=== PATIENT | male | born 1960 | race Caucasian/White ===

== ENCOUNTER 2016-05-18 03:22 | Emergency (ER) | payer OTHER ==
[~2016-05-18] VITALS: Ht 188 cm; Wt 108.9 kg
--- NOTE | 2016-05-18 04:48 | ED UPPER/LOWER EXTREMITY COMPL ---
See Addendum History of Present Illness General Chief Complaint: Chest Pain Stated Complaint: CP Source: patient Exam Limitations: no limitations Vital Signs & Intake/Output Vital Signs & Intake/Output Vital Signs Date Time Temp Pulse Resp B/P Pulse O2 O2 Flow FiO2 Ox Delivery Rate 05/18 0544 97.6 79 16 145/98 95 Room Air 05/18 0332 97.5 67 18 154/108 97 Room Air Allergies Coded Allergies: No Known Allergies (05/18/16) Reconcile Medications No Known Home Medications Triage Note: ARRIVED ED STATES WOKE UP FROM SLEEP WITH PAIN IN LT ARM FROM WRIST TO SHOULDER, WORSE AT ELBOW, NOW FEELS A LITTLE NUMB, PT DENIES CHEST PAIN,SOB Triage Nurses Notes Reviewed? yes HPI: Patient presents for evaluation of a left arm pain that awoke him from sleep prior to arrival. Patient states the pain has been constant and occasionally radiates to the left side of the neck and into the hand. He states the pain seems to be most intense in the area of the left elbow. It is described as a numbness that gets better when he is distracted. He denies any associated chest pain or dyspnea (he states he has noticed a burning pain in his chest only when he drinks water). He tried 3 aspirin about 45 minutes ago without improvement. He denies any known injury. Past History Travel History Traveled to [place] past 21 day No Medical History Any Pertinent Medical History? see below for history Neurological: NONE EENT: NONE Cardiovascular: NONE Respiratory: NONE Gastrointestinal: NONE Hepatic: NONE Renal: NONE Musculoskeletal: NONE Psychiatric: NONE Endocrine: NONE Blood Disorders: NONE Cancer(s): NONE Surgical History Surgical History: non-contributory Psychosocial History What is your primary language Finnish Tobacco Use: Refused to answer Family History Hx Contributory? No Review of Systems Review of Systems Constitutional: Reports: no symptoms. EENTM: Reports: no symptoms. Respiratory: Reports: no symptoms. Cardiovascular: Reports: no symptoms. Gastrointestinal/Abdominal: Reports: no symptoms. Genitourinary: Reports: no symptoms. Musculoskeletal: Reports: see HPI. Skin: Reports: no symptoms. Neurological/Psychological: Reports: no symptoms. Hematologic/Endocrine: Reports: no symptoms. Immunological: Reports: no symptoms. All Other Systems: Reviewed and Negative Physical Exam Physical Exam General Appearance: see below Comments: Gen.: Well-nourished, well-developed, no acute respiratory distress. Head: Normocephalic, atraumatic. Eyes: Normal inspection bilaterally Ears: Normal inspection bilaterally Nose: Normal inspection, nasal cannula in place Throat/mouth : Moist mucosa Neck: Supple, full range of motion, no goiter Heart: Regular rate and rhythm, no murmurs rubs or gallops Lungs: Clear to auscultation bilaterally with good air entry Back: Normal range of motion, nontender Extremities: Left upper extremity: Normal sensation to light touch throughout the extremity, deep tendon reflexes normal, hand strength normal. Testing of radial median and ulnar nerves normal. No tenderness with percussion over the carpal tunnel. Phalen and Tinel tests normal. Neurologic: Cranial nerves grossly intact, speech is clear Skin: warm and dry Psychiatric: Calm, cooperative, no apparent delusions or hallucinations Progress Differential Diagnosis: NERVE IMPINGEMENT, CERVICAL DISC DISEASE Plan of Care: Orders Procedure Date/time Status EKG 05/18 322 Active Diagnostic Imaging: Discussed w/RAD: Radiology Read. Radiology Impression: PATIENT: TED ANDERSON PRESENT AGE: 55 PATIENT ACCOUNT NO: [id number] : 62 LOCATION: [facility] ORDERING PHYSICIAN: HANS CARLSON MD SERVICE DATE: 05/18/16 EXAM TYPE: RAD - XRY-HUMERUS, LEFT EXAMINATION: XR HUMERUS, LEFT CLINICAL INFORMATION: Left upper extremity numbness COMPARISON: None TECHNIQUE: AP and lateral views of the left humerus. FINDINGS: No fracture of the humerus. No focal bone lesion. No periosteal reaction. Left shoulder normal. No soft tissue abnormality. IMPRESSION: Normal left humerus. DICTATED BY: NEVAEH OSPINA MD DATE/TIME DICTATED :05/18/16519 CHUTE OPERATOR:WING DATE/TIME TRANSCRIBED:05/18/16519 CONFIDENTIAL, DO NOT COPY WITHOUT APPROPRIATE AUTHORIZATION. < Electronically signed in Other Vendor System> SIGNED BY: NEVAEH OSPINA MD 24, PATIENT: TED ANDERSON PRESENT AGE: 55 PATIENT ACCOUNT NO: [id number] : 62 LOCATION: [facility] ORDERING PHYSICIAN: HANS CARLSON MD SERVICE DATE: 05/18/16 EXAM TYPE: RAD - XRY-CERV SPINE 4 OR 5 VIEWS EXAMINATION: XR CERVICAL SPINE CLINICAL INFORMATION: Left upper extremity numbness. COMPARISON: None TECHNIQUE: 3 views. FINDINGS: Cervical vertebrae have normal height. No fracture or bone destruction. Degenerative arthrosis at the facet joints, right greater than left, at the mid cervical spine. Degenerative spur posterior vertebral endplate C3-C4. Cannot assess neural foramina on these 3 views of cervical spine. Bilateral oblique views would be helpful. IMPRESSION: Degenerative disc disease. Further assessment of cervical spine with MRI could be helpful. DICTATED BY: NEVAEH OSPINA MD DATE/TIME DICTATED:05/18/16516 CHUTE OPERATOR:WING DATE/TIME TRANSCRIBED:05/18/16516 CONFIDENTIAL, DO NOT COPY WITHOUT APPROPRIATE AUTHORIZATION. <Electronically signed in Other Vendor System> SIGNED BY: NEVAEH OSPINA MD 05/18/16 0523 Comments: 05/18/2016 6:11:01 AM I have updated on his test results. He remains asymptomatic. Departure Departure Disposition: HOME OR SELF CARE Condition: Stable Clinical Impression Primary Impression: Arm paresthesia, left Secondary Impressions: Cervical disc disease Referrals: [facility] PATIENT HAS NO PRIMARY CARE DR (PCP/Family) Additional Instructions: Ibuprofen 600 mg every 6 hours as needed for your left arm discomfort. Follow- up with the [facility] for reevaluation this week. Return if any concerns or sudden worsening. Please note that there might be incidental findings in your evaluation that are unrelated to the current emergency department visit. Please notify your primary care doctor about this emergency department visit in order to obtain and review all of the testing performed so that these incidental findings can be monitored as needed. If you had an x-ray performed, please understand that some fractures may not be seen on the initial set of x-rays. If your symptoms persist you might need a repeat set of x-rays to check for such a fracture. If you had a laceration evaluated, please understand that foreign bodies such as glass or wood may not be visible to the naked eye or on plain x-rays. If the wound becomes red, swollen, increasingly more painful or if there is any drainage from the wound, please have it reevaluated by a physician for the possibility of a retained foreign body. Thank you for choosing the [facility] Emergency Department for your care. It was a pleasure to serve you today. Hans Carlson M.D. [facility] Departure Forms: Customer Survey General Discharge Information Prescriptions: Current Visit Scripts No Known Home Medications
--- NOTE | 2016-05-18 05:23 | RADIOLOGY REPORT ---
EXAMINATION: XR CERVICAL SPINE CLINICAL INFORMATION: Left upper extremity numbness. COMPARISON: None TECHNIQUE: 3 views. FINDINGS: Cervical vertebrae have normal height. No fracture or bone destruction. Degenerative arthrosis at the facet joints, right greater than left, at the mid cervical spine. Degenerative spur posterior vertebral endplate C3-C4. Cannot assess neural foramina on these 3 views of cervical spine. Bilateral oblique views would be helpful. IMPRESSION: Degenerative disc disease. Further assessment of cervical spine with MRI could be helpful.
--- NOTE | 2016-05-18 05:24 | RADIOLOGY REPORT ---
EXAMINATION: XR HUMERUS, LEFT CLINICAL INFORMATION: Left upper extremity numbness COMPARISON: None TECHNIQUE: AP and lateral views of the left humerus. FINDINGS: No fracture of the humerus. No focal bone lesion. No periosteal reaction. Left shoulder normal. No soft tissue abnormality. IMPRESSION: Normal left humerus.
[2016-05-18 05:44] VITALS: BP 145/98
== END 2016-05-18 06:18 ==
LOC: ERH 03:22
DX: M50.30 Other cervical disc degeneration, unspecified cervical region (principal)
CPT/HCPCS: 72050; 73060-LT; 93005; 93010